=== PATIENT | male | born 1975 | race African-American/Black ===

== ENCOUNTER 2024-07-19 11:27 | Observation (INO) ==
--- NOTE | 2024-07-19 12:09 | Emergency Department Note ---
HPI - General Adult General Chief complaint: Extremity Injury, Upper Stated complaint: chest pain Time Seen by Provider: 07/19/24 11:43 Source: patient Mode of arrival: walk-in Limitations: no limitations History of Present Illness HPI narrative: This is a 49 year old male patient that presents to the ER with c/o left upper chest herzog on and off for a week. Patient denies any SOB, abdominal pain, back pain, fever, chills or N/V Onset (ago): day(s) (7) Location: Reports chest Radiation: Reports non-radiation Severity: mild Quality: Reports aching Pain Consistency: Reports intermittent Relieving factors: Reports none Exacerbating factors: Reports none Associated symptoms: Reports denies other symptoms Treatments prior to arrival: Reports none Related Data Home Medications Medication Instructions Recorded Confirmed dorzolamide 22.3 mg-timolol 6.8 1 drp ophthalmic (eye) Q12H 07/19/24 07/19/24 mg/mL eye drops losartan 25 mg tablet 25 mg PO DAILY 07/19/24 07/19/24 rosuvastatin 5 mg tablet 5 mg PO BEDTIME 07/19/24 07/19/24 Allergies Allergy/AdvReac Type Severity Reaction Status Date / Time No Known Drug Allergies Allergy Verified 07/19/24 11:40 Review of Systems Status of ROS 10 or more systems reviewed and unremark able except as noted in history and below Constitutional Denies: fever, chills, change in weight, fatigue or malaise Eyes Denies: change in vision, blurry vision, blind spots or light sensitivity Ears, nose, mouth, and throat Denies: throat pain, neck pain, throat swelling or difficulty swallowing Cardiovascular Reports: chest pain; Denies: palpitations, edema, swelling of feet/ankles, lightheadedness or shortness of breath with exertion Respiratory Denies: shortness of breath, cough, wheezing, stridor or pain on inspiration Gastrointestinal Denies: abdominal pain, nausea, vomiting, coffee grounds in vomit, heartburn or diarrhea Genitourinary Denies: painful urination, urinary frequency, urinary urgency, blood in urine or genital pain Musculoskeletal Denies: back pain, neck pain, extremity pain, extremity swelling or joint pain Integumentary/Breast Denies: rash, itching, redness, skin pain, skin tenderness or skin swelling Neurological Denies: headache, numbness in extremities, weakness in extremities or lack of coordination Psychiatric Reports: hopelessness; Denies: anxiety, mood swings, panic attacks or change in sleep pattern Endocrine Denies: excessive urination, excessive thirst, fatigue or cold intolerance Hematologic/Lymphatic Denies: easy bruising, easy bleeding or enlarged lymph nodes Allergic/Immunologic Denies: hives, throat swelling, tongue swelling or facial swelling PFSH PFSH Medical History (Updated 07/19/24 @ 11:43 by Ophelia Beasley, RN) Hypertension Hypercholesteremia Surgical History (Updated 07/19/24 @ 11:43 by Ophelia Beasley RN) No significant past surgical history Social History Smoking status: never smoker Exam Constitutional: normal general appearance and no apparent distress Vital Signs - 24 hr 07/19/24 11:39 Temperature 98.1 F Pulse Rate 56 L Respiratory Rate 18 Blood Pressure 159/92 Pulse Oximetry 98 HENMT: normocephalic, head/scalp atraumatic, hearing grossly normal bilaterally, external ears normal, nasal mucous membranes normal, oral mucous membranes normal and oropharynx normal Eyes: PERRL, EOMs intact bilaterally, conjunctivae normal and no scleral icterus Neck/C-Spine: visual inspection normal and trachea midline Lymph: no lymphadenopathy noted Chest: inspection of chest normal Respiratory: breath sounds equal bilaterally, normal respiratory effort, clear to auscultation bilaterally, no wheezes, no rales, no retractions and no use of accessory muscles Cardiovascular: normal heart rate noted, regular rhythm noted, no gallop, no rub, no murmur, no JVD, no clicks, peripheral pulses 2+ throughout and no additional abnormal heart sounds Gastrointestinal: abdomen normal to inspection, abdomen soft to palpation, nontender to palpation, nontender to percussion, nondistended, normoactive bowel sounds, no hepatosplenomegaly, no masses, no pulsatile mass, no ascites and no hernia Genitourinary: no CVA tenderness Back/Pelvis: spine normal to inspection Extremities: normal to inspection, normal to palpation, no tenderness, full ROM, no joint enlargement and no deformity Neurology: no movement abnormality noted and no fasciculations noted Psychiatry: mental status grossly normal, oriented x3, thought process normal and cooperative Skin: skin color normal and no rash Course Course Hospital Course: 1247: Due to strong family hx of heart disease, patients risk factors and past medical hx will admit patient to the medical floor for further evaluation and treatment. VSS, no s/s of acute distress noted Vital Signs Vital signs: Vital Signs Temperature 98.1 F 07/19/24 11:39 Pulse Rate 56 L 07/19/24 11:39 Respiratory Rate 18 07/19/24 11:39 Blood Pressure 159/92 07/19/24 11:39 Pulse Oximetry 98 07/19/24 11:39 Temperature 98.1 F 07/19/24 11:39 Pulse Rate 56 L 07/19/24 11:39 Respiratory Rate 18 07/19/24 11:39 Blood Pressure 159/92 07/19/24 11:39 Pulse Oximetry 98 07/19/24 11:39 Medical Decision Making Differential Diagnosis Differential Diagnosis: viral illness Medical Records Medical records reviewed: Yes I reviewed the patient's medical records Lab Data Lab results reviewed: Yes I reviewed the patient's lab results Labs: Lab Results 07/19/24 Range/Units 12:15 WBC 5.0 (3.7-9.6) K/uL RBC 5.6 (4.40-5.80) M/uL Hgb 15.8 (14.0-17.4) gm/dL Hct 47.0 (41.3-50.1) % MCV 84.3 (81.9-96.5) fl MCH 28.4 (27.6-33.7) pg MCHC 33.6 (33.0-35.7) g/dl RDW 13.2 (11.0-14.8) % Plt Count 161 (142-355) K/uL MPV 9.6 (6.0-10.4) fl Gran % 55.6 (49.1-73.1) % Lymph % (Auto) 29.0 (17.6-39.05) % [place] % (Auto) 12.5 H (4.5-10.7) % Eos % (Auto) 2.5 (0.0-4.0) % Baso % (Auto) 0.4 (0.0-1.3) Lymph # (Auto) 1.5 (0.8-2.9) [place] # (Auto) 0.6 (0.2-0.8) Eos # (Auto) 0.1 (0.0-0.3) Baso # (Auto) 0.0 (0.0-0.1) Absolute Gran (auto) 2.8 (2.0-6.2) D-Dimer <100 L (100-600) ng/mL Sodium 142 (136-145) mmol/L Potassium 4.5 (3.6-5.2) mmol/L Chloride 104.0 (98-107) mmol/L Carbon Dioxide 30 (21-32) mmol/L Anion Gap 8.0 (4-14) mEq/L BUN 14 (7-18) mg/dL Creatinine 0.9 (0.6-1.3) mg/dL Estimated GFR 105.4 (>59.9) Glucose 74 (70-110) mg/dL Calcium 8.9 (8.5-10.1) mg/dL Total Bilirubin 0.71 (0.0-1.0) mg/dL AST 27 (15-37) U/L ALT 50 (30-65) U/L Alkaline Phosphatase 77 (50-136) U/L Troponin I High Sens 5.70 (4.0-60.4) ng/L Total Protein 7.2 (6.4-8.2) g/dL Albumin 3.9 (3.4-5.0) g/dL Imaging Data Chest x-ray: Attestation: I have reviewed the pertinent imaging results. ECG Data Attestation: I have reviewed the pertinent ECG results. Discharge Plan Discharge Patient Disposition: Admitted As Observation Condition: Stable Chief Complaint: Extremity Injury, Upper Clinical Impression: Chest pain Prescriptions: No Action losartan 25 mg tablet 25 mg PO DAILY Patient Comments: TAKE 1 TABLET BY MOUTH EVERY DAY dorzolamide-timolol 22.3-6.8 mg/mL drops 1 drp OPHTHALMIC (EYE) Q12H Patient Comments: INSTILL 1 DROP INTO BOTH EYES TWICE A DAY rosuvastatin 5 mg tablet 5 mg PO BEDTIME Patient Comments: TAKE 1 TABLET BY MOUTH EVERYDAY AT BEDTIME Print Language: Portuguese Referrals: Delmar Tomas [Primary Care Provider] - Time of Disposition: 12:49
[2024-07-19 12:20] LABS: Basophils%(Percent) Auto 0.4 (0.0-1.3); Eosinophils#(Absolute)Auto 0.1 (0.0-0.3); Eosinophils%(Percent) Auto 2.5 % (0.0-4.0); Granulocytes % - Auto 55.6 % (49.1-73.1); Granulocytes#(Absolute)- Auto 2.8 (2.0-6.2); Mean Corpuscular Volume 84.3 fl (81.9-96.5); Monocytes #(Absolute)- Auto 0.6 (0.2-0.8); Monocytes %(Percent)- Auto 12.5 % (4.5-10.7); Platelet Count 161 K/uL (142-355)
[2024-07-19 12:31] LABS: Potassium 4.5 mmol/L (3.6-5.2)
[2024-07-19] MEDS: ASPIRIN 81 MG TAB.CHEW PO ONE (12:51)
[2024-07-19] MEDS: NITROGLYCERIN 1 GM OINT...G. TD SCH (17:39)
[2024-07-20 04:19] LABS: Basophils%(Percent) Auto 0.6 (0.0-1.3); Eosinophils#(Absolute)Auto 0.2 (0.0-0.3); Eosinophils%(Percent) Auto 2.6 % (0.0-4.0); Granulocytes % - Auto 55.4 % (49.1-73.1); Granulocytes#(Absolute)- Auto 3.2 (2.0-6.2); Hematocrit 42.9 % (41.3-50.1); Mean Corpuscular Volume 83.3 fl (81.9-96.5); Monocytes #(Absolute)- Auto 0.6 (0.2-0.8); Monocytes %(Percent)- Auto 11.1 % (4.5-10.7); Platelet Count 159 K/uL (142-355); White Blood Count 5.8 K/uL (3.7-9.6)
[2024-07-20 06:29] LABS: Potassium 3.6 mmol/L (3.6-5.2)
[2024-07-20 07:41] VITALS: BP 130/79; TEMP 98.4
[2024-07-20] MEDS: ASPIRIN 81 MG TAB.CHEW PO SCH (08:00)
--- NOTE | 2024-07-20 11:26 | Short Stay Summary ---
H&P: HPI History of Present Illness Chief complaint: chest pain, HTN Narrative: Admitted through ER from home due to worsening LLCW pain. Had "pinching" sensation along LEFT lateral border. No BOYCE, jaw pain, shoulder/arm pain, edema, vision changes, [place], or palpitations. Mother with CA 4 months ago and finally ge tting back to her normal. No increased activity the last week, but did eat a lot of pizza and chips yesterday. ER work-up benign. Troponin negative x3. ECG and CXR with no acute findings. Pain better this AM with no further symptoms. Did have a lot of flatulence overnight with a large BM. Review of Systems Status of ROS 10 or more systems reviewed and unremark able except as noted in history and below Constitutional Denies: fever, chills, change in weight, fatigue or malaise Eyes Denies: change in vision, blurry vision, blind spots or light sensitivity Ears, nose, mouth, and throat Denies: throat pain, neck pain, throat swelling or difficulty swallowing Cardiovascular Reports: chest pain; Denies: palpitations, edema, swelling of feet/ankles, lightheadedness or shortness of breath with exertion Respiratory Denies: shortness of breath, cough, wheezing, stridor or pain on inspiration Gastrointestinal Denies: abdominal pain, nausea, vomiting, coffee grounds in vomit, heartburn, diarrhea or difficulty swallowing Genitourinary Denies: painful urination, urinary frequency, urinary urgency, blood in urine or genital pain Musculoskeletal Denies: back pain, neck pain, extremity pain, extremity swelling or joint pain Integumentary/Breast Denies: rash, itching, redness, skin pain, skin tenderness or skin swelling Neurological Denies: headache, numbness in extremities, weakness in extremities or lack of coordination Psychiatric Reports: hopelessness; Denies: anxiety, mood swings, panic attacks or change in sleep pattern Endocrine Denies: excessive urination, excessive thirst, fatigue or cold intolerance Hematologic/Lymphatic Denies: easy bruising, easy bleeding or enlarged lymph nodes Allergic/Immunologic Denies: hives, throat swelling, tongue swelling, facial swelling or wheezing [facility] Medical History (Updated 07/20/24 @ 11:31 by Jayjay Hatfield MD) Glaucoma Hypertension Hypercholesteremia Surgical History (Updated 07/19/24 @ 11:43 by Ophelia Beasley RN) No significant past surgical history Family History (Updated 07/20/24 @ 11:29 by Jayjay Hatfield MD) Mother CAD (coronary artery disease) Social History Smoking status: never smoker Problems where you live: no known problems Highest level of school completed/degree received: high school Meds Home Medications and Allergies Home Medications Medication Instructions Recorded Confirmed Type dorzolamide 22.3 mg-timolol 6.8 1 drp ophthalmic (eye) Q12H 07/19/24 07/19/24 History mg/mL eye drops losartan 25 mg tablet 25 mg PO DAILY 07/19/24 07/19/24 History rosuvastatin 5 mg tablet 5 mg PO BEDTIME 07/19/24 07/19/24 History Allergies Allergy/AdvReac Type Severity Reaction Status Date / Time No Known Drug Allergies Allergy Verified 07/19/24 11:40 Exam Constitutional: normal general appearance, no apparent distress, average body habitus, no limitations and alert Vital Signs - 24 hr 07/19/24 11:39 07/19/24 12:00 07/19/24 12:30 Temperature 98.1 F Pulse Rate 56 L 57 L 56 L Pulse Rate [Right] Respiratory Rate 18 18 16 Blood Pressure 159/92 151/98 151/102 Blood Pressure [Ri ght Arm] Pulse Oximetry 98 99 98 Oxygen Delivery Me thod 07/19/24 12:47 07/19/24 12:47 07/19/24 13:00 Temperature 98.3 F Pulse Rate 58 L Pulse Rate [Right] 57 L 57 L Respiratory Rate 19 16 15 Blood Pressure 172/94 Blood Pressure [Ri ght Arm] 154/96 Pulse Oximetry 99 98 98 Oxygen Delivery Me thod Room Air Room Air 07/19/24 13:30 07/19/24 14:00 07/19/24 14:35 Temperature 98.1 F Pulse Rate 52 L 52 L 52 L Pulse Rate [Right] Respiratory Rate 15 16 16 Blood Pressure 156/91 169/99 169/99 Blood Pressure [Ri ght Arm] Pulse Oximetry 99 99 99 Oxygen Delivery Me thod 07/19/24 17:39 07/19/24 19:22 07/19/24 21:00 Temperature 97.7 F Pulse Rate Pulse Rate [Right] 82 Respiratory Rate 17 Blood Pressure 141/85 140/81 Blood Pressure [Ri ght Arm] 140/81 Pulse Oximetry 98 Oxygen Delivery Me thod Room Air 07/19/24 23:40 07/20/24 03:41 07/20/24 07:40 Temperature 98.1 F 98.5 F 98.4 F Pulse Rate Pulse Rate [Right] 76 69 64 Respiratory Rate 18 18 19 Blood Pressure Blood Pressure [Ri ght Arm] 121/68 120/76 130/79 Pulse Oximetry 100 97 96 Oxygen Delivery Me thod Room Air Room Air Room Air HENMT: normocephalic, head/scalp atraumatic, hearing grossly normal bilaterally and external ears normal Eyes: PERRL, EOMs intact bilaterally and conjunctivae normal Neck/C-Spine: visual inspection normal and trachea midline Chest: inspection of chest normal and palpation of chest normal Respiratory: breath sounds equal bilaterally, normal respiratory effort, clear to auscultation bilaterally, no wheezes, no rales, no retractions and no use of accessory muscles Cardiovascular: normal heart rate noted, regular rhythm noted, no gallop, no rub, no murmur, no JVD, no clicks, peripheral pulses 2+ throughout and no additional abnormal heart sounds Gastrointestinal: abdomen normal to inspection, abdomen soft to palpation, nontender to palpation, nondistended, normoactive bowel sounds and no hepatosplenomegaly Back/Pelvis: thoracic spine ROM normal and lumbar spine ROM normal Extremities: normal to inspection, normal to palpation, no tenderness, full ROM, no joint enlargement and no deformity Neurology: fleet coordinator II-XII intact, no focal motor deficit noted, gait normal, speech normal, no fasciculations noted and GCS normal Psychiatry: mental status grossly normal, oriented x3, thought process normal, cooperative, affect normal, psychomotor activity normal and memory normal Assessment and Plan Assessment and Plan (1) Left-sided chest wall pain: Assessment and Plan: GI vs MSK. Very low likelihood of CA/CAD. Code(s): R07.89 - Other chest pain (2) Essential (primary) hypertension: Assessment and Plan: BP greatly improved after midnight. Monitor, no changes for now. Code(s): I10 - Essential (primary) hypertension (3) Mixed hyperlipidemia: Assessment and Plan: continue Crestor. Code(s): E78.2 - Mixed hyperlipidemia Results Labs Labs: CBC WBC 5.8 K/uL (3.7-9.6) 07/20/24 04:15 RBC 5.2 M/uL (4.40-5.80) 07/20/24 04:15 Hgb 14.7 gm/dL (14.0-17.4) 07/20/24 04:15 Hct 42.9 % (41.3-50.1) 07/20/24 04:15 MCV 83.3 fl (81.9-96.5) 07/20/24 04:15 MCH 28.5 pg (27.6-33.7) 07/20/24 04:15 MCHC 34.3 g/dl (33.0-35.7) 07/20/24 04:15 RDW 13.1 % (11.0-14.8) 07/20/24 04:15 Plt Count 159 K/uL (142-355) 07/20/24 04:15 MPV 10.6 fl (6.0-10.4) H 07/20/24 04:15 Gran % 55.4 % (49.1-73.1) 07/20/24 04:15 Lymph % (Auto) 30.3 % (17.6-39.05) 07/20/24 04:15 [place] % (Auto) 11.1 % (4.5-10.7) H 07/20/24 04:15 Eos % (Auto) 2.6 % (0.0-4.0) 07/20/24 04:15 Baso % (Auto) 0.6 (0.0-1.3) 07/20/24 04:15 Lymph # (Auto) 1.8 (0.8-2.9) 07/20/24 04:15 [place] # (Auto) 0.6 (0.2-0.8) 07/20/24 04:15 Eos # (Auto) 0.2 (0.0-0.3) 07/20/24 04:15 Baso # (Auto) 0.0 (0.0-0.1) 07/20/24 04:15 Absolute Gran (auto) 3.2 (2.0-6.2) 07/20/24 04:15 BMP Sodium 142 mmol/L (136-145) 07/20/24 04:15 Potassium 3.6 mmol/L (3.6-5.2) 07/20/24 04:15 Chloride 107.0 mmol/L (98-107) 07/20/24 04:15 Carbon Dioxide 26 mmol/L (21-32) 07/20/24 04:15 Anion Gap 9.0 mEq/L (4-14) 07/20/24 04:15 BUN 17 mg/dL (7-18) 07/20/24 04:15 Creatinine 0.9 mg/dL (0.6-1.3) 07/20/24 04:15 Estimated GFR 105.4 (>59.9) 07/20/24 04:15 Glucose 99 mg/dL (70-110) 07/20/24 04:15 Calcium 8.6 mg/dL (8.5-10.1) 07/20/24 04:15 Total Bilirubin 0.35 mg/dL (0.0-1.0) 07/20/24 04:15 AST 20 U/L (15-37) 07/20/24 04:15 ALT 46 U/L (30-65) 07/20/24 04:15 Alkaline Phosphatase 80 U/L (50-136) 07/20/24 04:15 Total Protein 6.4 g/dL (6.4-8.2) 07/20/24 04:15 Albumin 3.6 g/dL (3.4-5.0) 07/20/24 04:15 Cardiac Enzymes Troponin I High Sens 10.20 ng/L (4.0-60.4) 07/20/24 00:30 Liver Function Total Bilirubin 0.35 mg/dL (0.0-1.0) 07/20/24 04:15 AST 20 U/L (15-37) 07/20/24 04:15 ALT 46 U/L (30-65) 07/20/24 04:15 Alkaline Phosphatase 80 U/L (50-136) 07/20/24 04:15 Total Protein 6.4 g/dL (6.4-8.2) 07/20/24 04:15 Albumin 3.6 g/dL (3.4-5.0) 07/20/24 04:15 DS: Providers Provider Date of admission: 07/19/24 13:46 Primary care physician: Delmar Tomas Admitting clinician: Jayjay Hatfield Attending physician on admission: Jayjay Hatfield Attending physician on discharge: Jayjay Hatfield Discharging clinician: Jayjay Hatfield Anticipated date of discharge: 07/20/24 DS: Summary Hospital Course Hospital Course: 1247: Due to strong family hx of heart disease, patients risk factors and past medical hx will admit patient to the medical floor for further evaluation and treatment. VSS, no s/s of acute distress noted. Work-up negative. Vitals improved. Pain improved, but still present. Thought to be due to GI/MSK issue(s). Pt has f/u with PCP on 07/24/24. He is keeping a BP log at home. Status at Discharge Functional status at discharge: independent ambulation Overall status at discharge: patient is progressing back to baseline Time Spent with Patient Time attestation: Total time spent providing and/or coordinating discharge services: Time spent: less than 30 minutes Discharge Plan Discharge Disposition: Home, Self-Care Condition: Stable Discharge Medications: Continued losartan 25 mg tablet 25 mg PO DAILY Patient Comments: TAKE 1 TABLET BY MOUTH EVERY DAY dorzolamide-timolol 22.3-6.8 mg/mL drops 1 drp OPHTHALMIC (EYE) Q12H Patient Comments: INSTILL 1 DROP INTO BOTH EYES TWICE A DAY rosuvastatin 5 mg tablet 5 mg PO BEDTIME Patient Comments: TAKE 1 TABLET BY MOUTH EVERYDAY AT BEDTIME Discharge Orders: Discharge Order (Routine); Ordered 07/20/24 Ordered By: Jayjay Hatfield Activity: resume usual activities as tolerated Diet: advance to your usual diet Interventions: MED/SURG & ICU Observation Charge Sheet Last Done: 07/20/24 05:56 Forms: Portal/Health Info Access Inst Follow-Ups: Delmar Tomas [Primary Care Provider] -
[2024-07-20 12:15] VITALS: PULSE 66; RESP 16
== END 2024-07-20 12:18 | disposition home or self-care (01) ==
LOC: ED 11:27 → MS 11:27
PROVIDERS: ADMIT Family Medicine; ATTEND Family Medicine
DX: I10 Essential (primary) hypertension; R07.89 Other chest pain; E78.2 Mixed hyperlipidemia